=== PATIENT | female | born 1995 | race Hispanic/Latino ===

== ENCOUNTER 2017-09-22 20:02 | Emergency (ER) | payer SELFPAY | END 2017-09-22 22:39 | disposition home or self-care (01) | LOC: EDH 20:02 | DX: S80.01XA Contusion of right knee, initial encounter (principal); R60.0 Localized edema; X58.XXXA Exposure to other specified factors, initial encounter; Y93.89 Activity, other specified; Y92.89 Other specified places as the place of occurrence of the external cause; Y99.8 Other external cause status | CPT/HCPCS: 93971 ==